=== PATIENT | male | born 1940 | race Caucasian/White ===

== ENCOUNTER 2019-07-10 09:00 | Outpatient (RCR) | payer MEDICARE, SELFPAY ==
--- NOTE | 2019-04-15 17:20 | STOPEVAL ---
Thank you for referring this patient to [facility] [place] [facility]. It is recommended that Mr Mirtha returned to outpatient speech therapy for treatment of aphasia x3 week 4. Please review, sign, date and return this plan of care SALLY. I agree with and certify that the following plan of care is medically necessary. 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 is present who provided pt's recent medical history. Pt's speech is fluent but in saturated with strings of jargon, neologisms and paraphasic errors. Only a small smattering of appropriate & intelligible speech is noted. Pt is pleasant and unaware of the severity of his communicative deficits. Pt does not appear to self regulate, self analyze and does not make attempts to correct. Pt also presents with somewhat press of speech/ erratic speech and responds only briefly to stop cues. Stop cues were required throughout evaluation. 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 Prior to the CVA, he was completely independently with all aspects of ADL's including driving. Hobbies include: being outdoors tending to a garden & cutting wood, etc. Pt initially presented to [facility] then transferred to [facility]
--- NOTE | 2019-05-16 10:01 | STOPEVAL ---
Thank you for referring this patient to [facility]. Speech Therapy is recommended to continue in order to improve auditory and reading comprehension as well as verbal and written expression. Please review, sign, date and return this plan of care SALLY. I agree with and certify that the following plan of care is medically necessary. Referring Physician Date Admitting Provider: Attending Provider: PHYSICIAN NOT ON STAFF Referring Provider: KADI Outpatient Re Evaluation Start: 04/15/19 12:42 Freq: Status: Active Protocol: Document 05/16/19 09:32 JEANE (Rec: 05/16/19 10:01 BECLUCYRT [email or web address]) Therapy Assessment Status Assessment Status Assessment Status Re-evaluation Outpatient Past Medical History Neurological History Hx Cerebrovascular Accident (CVA) Yes: 03-20-19 Pain Assessment Timing of Pain Assessment Timing of Pain Assessment Re-assessment Self Report Self Report Pain Level 0 Pain Scale Pain Scale Used Numeric (1 - 10) Pain Score Pain Score 0: Self Report Language Evaluation Auditory Comprehension Body Part Identification (% Accuracy (0- 40 100)) Picture Identification (% Accuracy (0- 60 100)) Object/Picture Identification Comments body parts & pictures were identified with additional descriptive cues Simple Yes/No Questions (% Accuracy (0- 50 100)) Auditory Comprehension One-Step 20 Directives (% Accuracy (0-100)) Factors Limiting Auditory Comprehension Aphasia Overall Auditory Comprehension Ability mod/severe Additional Auditory Comprehension Pt appears to comprehend Comments gestures. Identify picture from field of 2 with verbal descriptive cues: 50% accuracy . Yes/no responses remain unreliable. Reading Comprehension Name Recognition Yes Numeral Comprehension Comments Numbers and letters: tested in field of two (due to severity of verbal expression): It appears that when the pt is able to correctly state the number that is being requested , identification consistency/ accuracy is increased. Number ID 1-10: 100%; Reading Comprehension Comments Pt is able to match single words to pictures in a field of 2 with 100% acc Factors Limiting Reading Comprehension Poor Safety Awareness Comments Related to Reading Match phrase to a picture in Comprehension
--- NOTE | 2019-06-11 15:24 | STOPEVAL ---
SPEECH THERAPY PROGRESS NOTE: Thank you for referring this patient to [facility]. The pt. has been seen for 24 speech therapy visits. Upon re evaluation, progress is exhibited across all areas albeit slow due to the severity of impairment. Further speech therapy is warranted and recommended 2-3x/week 4. Please review, sign, date and return this plan of care SALLY. I agree with and certify that the following plan of care is medically necessary. 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 is present who provided pt's recent medical history. Pt's speech is fluent but in saturated with strings of jargon, neologisms and paraphasic errors. Only a small smattering of appropriate & intelligible speech is noted. Pt is pleasant and unaware of the severity of his communicative deficits. Pt does not appear to self regulate, self analyze and does not make attempts to correct. Pt also presents with somewhat press of speech/ erratic speech and responds only briefly to stop cues. Stop cues were required throughout evaluation. 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 Prior to the CVA, he was completely independently with all aspects of ADL's including driving. Hobbies include: being outdoors tending to a garden & cutting wood, etc. Pt
--- NOTE | 2019-07-10 11:24 | STOPEVAL ---
SPEECH THERAPY DISCHARGE: Thank you for referring this patient to [facility]. Pt has completed 33 treatment sessions. At this time pt will be discharged see the following for progress specifics. Please review, sign, date and return this discharge SALLY. I agree with discharge from therapy at this time. Referring Physician Date Attending Provider: PHYSICIAN NOT ON STAFF Referring Provider: KADI Outpatient Discharge: Start: 04/15/19 12:42 Freq: Status: Active Protocol: Document 07/10/19 09:35 JEANE (Rec: 07/10/19 11:24 BECLUCYRT [email or web address]) Therapy Assessment Status Assessment Status Assessment Status Discharge Outpatient Past Medical History Neurological History Hx Cerebrovascular Accident (CVA) Yes: 03-20-19 Pain Assessment Timing of Pain Assessment Timing of Pain Assessment Pre-Treatment Self Report Self Report Pain Level 0 Pain Scale Pain Scale Used Numeric (1 - 10) Pain Score Pain Score 0: Self Report Language Evaluation Auditory Comprehension Factors Limiting Auditory Comprehension Aphasia Overall Auditory Comprehension Ability Moderate Deficits Additional Auditory Comprehension Pt presents with increased Comments comprehension of functional information and discourse versus structured content, i.e . identification of random body parts. Pt is able to comprehend simple questions,i. e. biographical orientation and immediate environment, but comprehends directives such as point to your ear or point to the ceiling with less than 40% accuracy. Reading Comprehension Reading Comprehension Comments Pt continues to present with moderate deficit in the ability to read a directive and carry out the instruction; however, pt is able to match a 5-6 word sentence to a picture from 2 with 90% accuracy. Pt is able to create a sentence given 3 words (on index cards) with fluctuating 50-70% accuracy. Verbal Expression Factors Limiting Verbal Function Aphasia Overall Verbal Expression Ability mod/severe Comments Related to Verbal Expression Overall pt has exhibited progression in the ability to verbalize appropriate and
== END 2019-07-11 10:28 | disposition home or self-care (01) ==
LOC: ANHST 09:00
DX: I69.320 Aphasia following cerebral infarction (principal)
CPT/HCPCS: 92507; 92523

== ENCOUNTER 2019-10-14 11:00 | Outpatient (RCR) | payer MEDICARE, SELFPAY ==
--- NOTE | 2019-09-05 13:42 | STOPEVAL ---
OUTPATIENT SPEECH THERAPY EVALUATION: Thank you for referring Abelardo Shannon to [facility]. Speech therapy is recommended x2 week 4. Please review, sign, date and return this plan of care SALLY. I agree with and certify that the following plan of care is medically necessary. Referring Physician Date Attending Provider: PHYSICIAN NOT ON STAFF *ST Outpatient Evaluation Start: 09/05/19 10:26 Freq: Status: Active Protocol: Document 09/05/19 10:00 BECHERERT (Rec: 09/05/19 11:02 BECHERERT [email or web address]) Therapy Assessment Status Assessment Status Assessment Status Evaluation Outpatient Past Medical History Past Medical History Source of Past Medical History Family/Significant Other Neurological History Hx Cerebrovascular Accident (CVA) Yes: 03-20-19 Cardiovascular History Hx Irregular Heartbeat Yes Respiratory History Hx Respiratory Disorders No Significant History Gastrointestinal History Hx Gastrointestinal Disorders No Significant History Genitourinary History Hx Genitourinary Disorders No Significant History Musculoskeletal History Hx Musculoskeletal Disorders No Significant History Hematological History Hx Hematological Disorders No Significant History Endocrine History Hx Hyperthyroidism Yes HEENT History Hx Cataracts Yes: removed Hx Macular Degeneration Yes Integumentary History Hx Skin Disorders No Significant History Reproductive History Hx Reproductive Disorders No Significant History Psychosocial History Hx Psychiatric Disorders No Significant History Pain History History of Any Previous or Ongoing No Significant History Instance of Pain Anesthesia History Hx Anesthesia Reactions No Significant History Other History Hx Chemotherapy Yes: oral pill gleevic 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 Prior Level of Function Activity Level (Last 3 Months) 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
--- NOTE | 2019-10-01 15:44 | STOPEVAL ---
Speech Therapy Care Plan Update/Progress Report: Thank you for referring Abelardo Shannon to [facility]. It is recommended that pt continue therapy x1/biweekly x 6 weeks per pt's/spouse choice in order to continue improvement as well as to continue to teach pt's spouse therapeutic techniques. Please review, sign, date and return this plan of care SALLY. I agree with and certify that the following plan of care is medically necessary. Referring Physician Date Admitting Provider: Attending Provider: PHYSICIAN NOT ON STAFF Referring Provider: KADI Outpatient Evaluation Start: 09/05/19 10:26 Freq: Status: Active Protocol: Document 10/01/19 15:16 BECHERERT (Rec: 10/01/19 15:33 BECHERERT [email or web address]) Therapy Assessment Status Assessment Status Assessment Status Re-evaluation Outpatient Past Medical History Past Medical History Source of Past Medical History Family/Significant Other Neurological History Hx Cerebrovascular Accident (CVA) Yes: -03-27 Cardiovascular History Hx Irregular Heartbeat Yes Respiratory History Hx Respiratory Disorders No Significant History Gastrointestinal History Hx Gastrointestinal Disorders No Significant History Genitourinary History Hx Genitourinary Disorders No Significant History Musculoskeletal History Hx Musculoskeletal Disorders No Significant History Hematological History Hx Hematological Disorders No Significant History Endocrine History Hx Hyperthyroidism Yes HEENT History Hx Cataracts Yes: removed Hx Macular Degeneration Yes Integumentary History Hx Skin Disorders No Significant History Reproductive History Hx Reproductive Disorders No Significant History Psychosocial History Hx Psychiatric Disorders No Significant History Pain History History of Any Previous or Ongoing No Significant History Instance of Pain Anesthesia History Hx Anesthesia Reactions No Significant History Other History Hx Chemotherapy Yes: oral pill gleevic 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
--- NOTE | 2019-10-16 09:19 | STOPEVAL ---
OUTPATIENT SPEECH THERAPY DISCHARGE: Thank you for referring Abelardo Shannon to [facility]. Pt has attended another [address] sessions and desires to be discharged at this time. Please review, sign, date and return this discharge SALLY. I agree with Pt's discharge at this time. Referring Physician Date Attending Provider: PHYSICIAN NOT ON STAFF *ST Outpatient Evaluation- Discharge Start: 09/05/19 10:26 Freq: Status: Active Protocol: Document 10/14/19 11:00 BECLUCYRT (Rec: 10/16/19 09:19 BECHERERT [email or web address]) Therapy Assessment Status Assessment Status Assessment Status Re-evaluation Outpatient Past Medical History Past Medical History Source of Past Medical History Family/Significant Other Neurological History Hx Cerebrovascular Accident (CVA) Yes: 03-20-19 Cardiovascular History Hx Irregular Heartbeat Yes Respiratory History Hx Respiratory Disorders No Significant History Gastrointestinal History Hx Gastrointestinal Disorders No Significant History Genitourinary History Hx Genitourinary Disorders No Significant History Musculoskeletal History Hx Musculoskeletal Disorders No Significant History Hematological History Hx Hematological Disorders No Significant History Endocrine History Hx Hyperthyroidism Yes HEENT History Hx Cataracts Yes: removed Hx Macular Degeneration Yes Integumentary History Hx Skin Disorders No Significant History Reproductive History Hx Reproductive Disorders No Significant History Psychosocial History Hx Psychiatric Disorders No Significant History Pain History History of Any Previous or Ongoing No Significant History Instance of Pain Anesthesia History Hx Anesthesia Reactions No Significant History Other History Hx Chemotherapy Yes: oral pill gleevic 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 Pain Assessment Timing of Pain Assessment Timing of Pain Assessment Assessment Self Report Self Report Pain Level 0 Pain Score Pain Score 0: Self Report Language Evaluation Auditory Comprehension Body Part Identification (% Accuracy (0- 100 100)) Picture Identification (% Accuracy (0- 100 100)) Auditory Comprehension One-Step 100 Directives (% Accuracy (0-100)) Auditory Comprehension of Two-Step 60 Directives (% Accuracy (0-100)) Factors Limiting Auditory Comprehension Aphasia Overall Auditory Comprehension Ability Moderate Deficits Additional Auditory Comprehension - yes/no response re self and Comments immediate contexts: 100%; however, in structured tasks, not reliably; - follo
== END 2019-10-21 13:17 | disposition home or self-care (01) ==
LOC: ANHST 11:00
DX: I69.351 Hemiplegia and hemiparesis following cerebral infarction affecting right dominant side (principal); I69.322 Dysarthria following cerebral infarction; I63.512 Cerebral infarction due to unspecified occlusion or stenosis of left middle cerebral artery; E78.5 Hyperlipidemia, unspecified; E55.9 Vitamin D deficiency, unspecified; E66.9 Obesity, unspecified; E03.9 Hypothyroidism, unspecified; R13.0 Aphagia; R26.81 Unsteadiness on feet; R27.9 Unspecified lack of coordination; Z68.32 Body mass index [BMI] 32.0-32.9, adult
CPT/HCPCS: 92507; 92523

== ENCOUNTER 2020-06-01 13:32 | Outpatient (CLI) | payer MEDICARE, SELFPAY ==
[2020-06-01 15:00] LABS: Alanine Aminotransferase 41 U/L (16-63); Albumin Level 3.5 g/dL (3.4-5.0); Alkaline Phosphatase 113 U/L (46-116); Anion Gap 10 mmol/L (8-16); Aspartate Amino Transferase 38 U/L (15-37); Bilirubin,Total 0.6 mg/dL (0.00-1.00); Blood Urea Nitrogen 19 mg/dL (7-18); Calcium 8.7 mg/dL (8.5-10.1); Carbon Dioxide 27 mmol/L (21-32); Chloride 105 mmol/L (98-108); Estimated Glomerular Filt Rate > 60; Glucose 100 mg/dL (70-99); Osmolality Calculated 296 mOsm/kg (285-295); Potassium 4.1 mmol/L (3.5-5.1); Prostate Specific Antigen 0.9 ng/mL (< OR = 4.0); Sodium 142 mmol/L (136-145); Total Protein 6.2 g/dL (6.4-8.2)
== END 2020-06-01 13:33 | disposition home or self-care (01) ==
LOC: CHSLAB 13:36
PROVIDERS: PCP Internal Medicine; Visit Provider Urology
DX: N40.3 Nodular prostate with lower urinary tract symptoms (principal); R31.0 Gross hematuria
CPT/HCPCS: 36415; 80053; 84153

== ENCOUNTER 2024-11-03 11:00 | Outpatient (RCR) | payer MEDICARE, SELFPAY ==
--- NOTE | 2024-08-25 14:47 | OPREHPOC ---
Outpatient Therapy Plan of Care This is a Multidisciplinary Plan of Care that may contain components documented by all disciplines (PT, OT, and ST.) ST Problem 1 ST Problem #[address] Goal 1 Goal / Goal Update Patient will participate in home programming to improve carry over/generalization of skills to home environment. Target Visit [address] Problem #[address] Goal 1 Goal / Goal Update Auditory Comprehension 1. Patient will comprehend simple yes/no questions for needs and wants with 75% accuracy minimal cues. 2. Patient will follow simple 1 step directives with 75% accuracy minimal cues. 3. Patient will identify pictured items in a field of 4 for communication board utilization with 85% accuracy minimal cues. Target Visit 10
--- NOTE | 2024-08-25 14:48 | STOPEVAL1 ---
Assessment and note entered by Lizz Blackburn WILDLIFE BIOSTATION RESEARCH ECOLOGIST Evaluation Information Assessment Status Evaluation Reported Pain Level Pain Score 0: Self Report Assessment ST Clinical Summary Patient was referred for a speech language evaluation for changes in daily language abilities . Per spouse reports the patient has had a change in overall speech production and comprehension abilities. She states she noticed a change approximately 6 months prior. Since then she has experienced increased difficulty understanding the patients daily needs and requests when he attempts to verbalize. She feels it is more difficult for him to comprehend her when asking him daily questions. The patient had a prior CVA in 2019 with extensive speech therapy following for severe expressive/receptive aphasia and apraxia. He has moderate to severe macular degeneration which has further impaired ability to read or write responses. The patient's reports her greatest concern is his ability to understand her when she is speaking to him. The patient presents with severe aphasia and apraxia. Verbal responses are jargon in nature with neologisms at the single word level. The patient is unable to follow simple 1 step directives without being provided rephrasing but had some success with picture and object identification in a field of 3-4 with some potential for a large print picture communication aid. With extra time and simple presentation the patient was able to complete 1 step directives 40%- 50% accuracy. Discussed results of evaluation with spouse and recommendations for trial therapy to address basic concerns for comprehension and possible large print picture communication aid to improve communication of basic needs and wants. Plan of Care Interventions Treatment of Language ST Services Indicated Yes These treatments will address the objective and functional deficits as defined above. The patient will be advanced safely and appropriately in order for the patient to progress towards his/her prior level of function. Additional exercises will be introduced and as well as a comprehensive home exercise program upon discharge, if needed, ?to ensure carryover of functional gains achieved in the clinic. This treatment plan has been reviewed and agreement upon by the patient.
--- NOTE | 2024-09-17 12:32 | PCSTNOTE ---
Patient called & cancelled scheduled appointment this date due to out of town.
--- NOTE | 2024-10-01 13:06 | PCSTNOTE ---
Patient called & cancelled scheduled appointment this date due to out of town
--- NOTE | 2024-11-03 12:17 | STOPDC ---
Assessment and note entered by Lizz Blackburn MASTER BREWER Evaluation Information Assessment Status Discharge Reported Pain Level Pain Score 0: Self Report Assessment ST Clinical Summary Patient was referred for a speech language evaluation for changes in daily language abilities . Per spouse reports the patient has had a change in overall speech production and comprehension abilities. She states she noticed a change approximately 6 months prior. Since then she has had increased difficulty understanding the patients daily needs and requests when he attempts to verbalize. She feels it is more difficult for him to comprehend her when asking him daily questions. The patient had a prior CVA in 2019 with extensive speech therapy following for severe expressive/receptive aphasia and apraxia. He has moderate to severe macular degeneration which has further impaired ability to read or write responses. The patient's reports her greatest concern is his ability to understand her when she is speaking to him. Initial Evaluation results were as follows: The patient presented with severe aphasia and apraxia. Verbal responses were non sensical jargon with neologisms at the single word to sentence level. The patient was unable to follow simple 1 step directives without rephrasing but had some success with picture and object identification in a field of 3-4 with some potential for a large print picture communication aid. With extra time and simple presentation was able to complete 1 step directives 40%- 50% accuracy. The patient returns today for planned discharge. He is able to follow 1 step directives with extra paraphrasing 70%, Answers simple yes and no questions for spouse 70%. The patient is able to complete picture object identification with field of 2 with (large print written aid and large pictures) due to vision 85% accuracy for purpose of communication book. Simple 1 step directions for using communication book aid with 70% accuracy and minimal to moderate cues . Answering simple yes and no questions with 70% accuracy. The patient has 6 picture books established best on need to utilize with spouse. The patient and spouse have trialed picture book and feel it will meet needs as best as possible given the progression of patient's aphasia. Discharge planned this date. Plan of Care ST Services Indicated No
== END 2024-11-04 10:06 | disposition home or self-care (01) ==
LOC: ANHST 11:00
PROVIDERS: PCP Internal Medicine; Visit Provider Physician Assistant
DX: R47.01 Aphasia (principal)
CPT/HCPCS: 92507; 92523